=== PATIENT | male | born 1960 | race Two or more races ===

== ENCOUNTER 2020-07-30 03:14 | Inpatient (IN) | payer OTHER ==
[~2020-07-30] VITALS: Ht 170.2 cm; Wt 95.3 kg
[2020-07-30] MEDS ORDERED: NEURONTIN800 MG (03:33)
[2020-07-30] MEDS ORDERED: XANAX XR2 MG (03:33)
[2020-07-30] MEDS ORDERED: PROZAC10 MG (03:33)
== END 2020-08-03 16:41 | disposition home or self-care (01) | DRG 195 ==
LOC: ER 03:14 → MEDI 12:08
PROVIDERS: ADMIT Internal Medicine; ATTEND Internal Medicine
PROC: 4A033R1 Measurement of Arterial Saturation, Peripheral, Percutaneous Approach (ICD-10-PCS; principal; 2020-07-30)
PROC: CB2YYZZ Tomographic (Tomo) Nuclear Medicine Imaging of Respiratory System using Other Radionuclide (ICD-10-PCS; principal; 2020-07-30)
DX: J16.8 Pneumonia due to other specified infectious organisms (principal); E86.0 Dehydration; E87.8 Other disorders of electrolyte and fluid balance, not elsewhere classified; Z20.822 Contact with and (suspected) exposure to COVID-19